=== PATIENT | female | born 1965 | race Caucasian/White ===

== ENCOUNTER → 2019-07-06 | Outpatient (CLI) | payer BC ==
[~2019-07-06] MED LIST: CITA20 PO; LEVSOD75 PO; TRAM50 PO
== END | disposition home or self-care (01) ==
LOC: LAB SHORT 11:22 → LAB 11:22
DX: R30.0 Dysuria (principal)
CPT/HCPCS: 87086

== ENCOUNTER → 2022-09-25 | Outpatient (CLI) | payer BC ==
[2022-09-25 09:48] LABS: BASOPHILS ABSOLUTE AUTO 0.04 K/mm3 (0.00-0.23); BASOPHILS PERCENT AUTO 1 % (0-2); EOSINOPHILS PERCENT AUTO 2 % (0-6); Hematocrit 44.2 % (33.0-51.0); Hemoglobin 14.6 g/dL (11.5-16.0); IMMATURE GRAN ABSOLUTE AUTO 0.02 K/mm3 (0.00-0.10); IMMATURE GRAN PERCENT AUTO 1 % (0-1); LYMPHOCYTES ABSOLUTE AUTO 1.24 K/mm3 (0.84-5.20); LYMPHOCYTES PERCENT AUTO 29 % (21-46); MONOCYTES ABSOLUTE AUTO 0.48 K/mm3 (0.16-1.47); MONOCYTES PERCENT AUTO 11 % (4-13); Mean Corpuscular HGB 27.9 pg (26.0-34.0); Mean Corpuscular Volume 84 fL (80-100); Mean Platelet Volume 8.5 fL (9.1-12.4); NEUTROPHILS ABSOLUTE AUTO 2.45 K/mm3 (1.96-9.15); NEUTROPHILS PERCENT AUTO 57 % (41-73); Platelet Count 255 K/mm3 (150-400); RDW Coefficient Variation 13.1 % (11.7-14.2); RDW Standard Deviation 39.9 fL (35.1-46.3); Red Blood Cell Count 5.24 M/mm3 (3.80-5.20); White Blood Cell Count 4.33 K/mm3 (4.00-11.30)
[2022-09-25 09:59] LABS: Albumin, Blood 3.9 g/dL (3.4-5.0); Bilirubin, Total 0.2 mg/dL (0.1-1.0); Bun/Creatinine Ratio 11.7 (12.0-20.0); Calcium, Blood 8.9 mg/dL (8.5-10.1); Creatinine, Blood 0.77 mg/dL (0.40-1.00); Potassium, Blood 3.7 mmol/L (3.5-5.5); Total Protein, Blood 7.9 g/dL (6.4-8.2)
== END | disposition home or self-care (01) ==
LOC: LAB SHORT 09:44 → LAB 09:44
PROVIDERS: Physician Assistant Medical
DX: L29.9 Pruritus, unspecified (principal)
CPT/HCPCS: 80053; 85025

== ENCOUNTER 2022-10-01 09:00 | Emergency (ER) | payer BC ==
[~2022-10-01] VITALS: Ht 157.5 cm; Wt 91.6 kg
[2022-10-01] MEDS ORDERED: Prednisone50 MG PO (10:28)
[2022-10-01 10:53] LABS: Influenza A, PCR NEGATIVE (NEGATIVE); Influenza B, PCR NEGATIVE (NEGATIVE); Resp Syncytial Virus, PCR NEGATIVE (NEGATIVE); SARS-Cov-2 (COVID-19) PCR, MMC NEGATIVE (NEGATIVE)
== END 2022-10-01 12:00 | disposition home or self-care (01) ==
LOC: ER 09:00
PROVIDERS: Emergency Medicine
DX: J45.901 Unspecified asthma with (acute) exacerbation (principal); Z88.0 Allergy status to penicillin; Z88.5 Allergy status to narcotic agent; Z91.040 Latex allergy status; Z91.09 Other allergy status, other than to drugs and biological substances; Z79.899 Other long term (current) drug therapy; Z79.890 Hormone replacement therapy; Z20.822 Contact with and (suspected) exposure to COVID-19; Z79.52 Long term (current) use of systemic steroids
CPT/HCPCS: 0241U; 71046; A9270; J7512

== ENCOUNTER 2022-12-20 07:16 | Day surgery (SDC) | payer BC ==
[~2022-12-20] VITALS: Ht 156 cm; Wt 97.0 kg
[~2022-12-20 07:16] MED LIST changes: +LIDO700A20 TOP; +MORP15ER PO; +Prednisone50 MG PO
[2022-12-20] MEDS ORDERED: ESOMEPRAZOLE MA40 MG PO (08:12)
[2022-12-20] MEDS ORDERED: TRAM50 PO (08:12)
[2022-12-20] MEDS ORDERED: VITAMIN D5000 UNIT PO (08:12)
[2022-12-20] MEDS ORDERED: FLUC150A PO (08:13)
[2022-12-20] MEDS ORDERED: QUERCETIN500 MG PO (08:14)
[2022-12-20] MEDS ORDERED: ZINC15 (08:14)
[2022-12-20] MEDS ORDERED: ASCORBIC ACID500 MG (08:15)
--- NOTE | 2022-12-20 08:24 | NUR ---
Ambulatory in Day Surgery. Pre-Op teaching done. Pt verbalizes understanding. Patient confirms NPO status and agrees with scheduled surgery. Patient States Post-Procedure ride home has been arranged.
--- NOTE | 2022-12-20 08:57 | NUR ---
12/20/22 0857 Elian Alcantar HISTORY, CHART, MEDICATIONS AND ALLERGIES REVIEWED BEFORE START OF PROCEDURE. PATIENT CONFIRMS NPO STATUS AND AGREES WITH SCHEDULED PROCEDURE. 3-LEAD EKG REVIEWED WITH PHYSICIAN PRIOR TO START OF PROCEDURE. MONITOR INTACT WITH CONTINUOUS PULSE OXIMETRY,CAPNOGRAPHY, 3-LEAD EKG, INTERMITTENT BP. SUPPLEMENTAL O2 TO BE TITRATED THROUGHOUT PROCEDURE TO MAINTAIN O2 SATURATION ABOVE 90%. PATIENT DETERMINED TO BE ASA APPROPRIATE FOR PROPOFOL SEDATION PRIOR TO START OF PROCEDURE BY
--- NOTE | 2022-12-20 09:13 | NUR ---
Patient up to Ambulate independently. Gait steady. Discharge instructions reviewed with patient. Patient verbalizes understanding. Copy given to patient to take home. Discharged via wheelchair to private car for ride home.
== END 2022-12-20 23:18 | disposition home or self-care (01) ==
LOC: ORSCMMR 07:16 → ORD 08:30 → ORSCMMR 08:30
PROVIDERS: Internal Medicine Gastroenterology
PROC: 0DB48ZX Excision of Esophagogastric Junction, Via Natural or Artificial Opening Endoscopic, Diagnostic (ICD-10-PCS; principal; 2022-12-20 08:30)
PROC: 0DB98ZX Excision of Duodenum, Via Natural or Artificial Opening Endoscopic, Diagnostic (ICD-10-PCS; principal; 2022-12-20 08:30)
PROC: 0DB68ZX Excision of Stomach, Via Natural or Artificial Opening Endoscopic, Diagnostic (ICD-10-PCS; principal; 2022-12-20 08:30)
PROC: 0DB58ZX Excision of Esophagus, Via Natural or Artificial Opening Endoscopic, Diagnostic (ICD-10-PCS; principal; 2022-12-20 08:30)
DX: K21.9 Gastro-esophageal reflux disease without esophagitis (principal); E66.9 Obesity, unspecified; Z68.39 Body mass index [BMI] 39.0-39.9, adult; Z79.899 Other long term (current) drug therapy
CPT/HCPCS: 82947; 88305; A9270; J2704; J7120

== ENCOUNTER → 2023-01-31 | Outpatient (CLI) | payer BC ==
[~2023-01-31] MED LIST changes: +ASCORBIC ACID500 MG; +ESOMEPRAZOLE MA40 MG PO; +FLUC150A PO; +QUERCETIN500 MG PO; +VITAMIN D5000 UNIT PO; +ZINC15
[2023-02-01 16:07] LABS: HPV 16 Negative (Negative); HPV 18 Negative (Negative); HPV OTHER HR TYPES Negative (Negative)
== END | disposition home or self-care (01) ==
LOC: LAB SHORT 13:13 → LAB 13:13
PROVIDERS: Family Medicine
DX: Z01.419 Encounter for gynecological examination (general) (routine) without abnormal findings (principal)
CPT/HCPCS: 87624; G0145